=== PATIENT | male | born 1995 | race Caucasian/White ===

== ENCOUNTER 2021-12-19 06:50 | Emergency (ER) | payer OTHER, SELFPAY ==
--- NOTE | 2021-12-19 06:56 | W.ED.EXTPRO ---
HPI - Extremity Problem General: Chief complaint: Extremity Injury, Lower Stated complaint: Right Leg Injury Time Seen by Provider: 12/19/21 06:56 Source: patient Mode of arrival: ambulatory Limitations: no limitations History of Present Illness: 26-year-old male presents emergency room with complaint of right ankle pain. He hyperextended his ankle while working yesterday. He has not previously injured the right ankle. He had caught his foot as he was walking hyper etc. he was able to walk afterward this morning he has quite a bit lateral swelling and discomfort he has some chronic back pain issues and he occasionally uses a cane today using a cane because of his ankle. He landed on an outstretched right hand but has no wrist pain or discomfort no other injuries. MD Complaint: extremity pain Onset (ago): minute(s) Pain Consistency: constant Location: right and lower extremity (Ankle) Quality: aching Radiation: none Relieving factors: elevation Exacerbating factors: weight bearing Associated symptoms: Deny arthralgias, chest pain, fever(s), myalgias, rash or short of breath Review of Systems Const: Denies: fever(s) Card: Denies: chest pain Resp: Denies: dyspnea, productive cough or non-productive cough GI: Denies: abdominal pain, nausea or vomiting Musc: Reports: back pain (Chronic), joint pain and joint swelling; Denies: neck pain Skin/Breast: Denies: rash PFSH ED PFSH: Medical History (Updated 12/19/21 @ 07:43 by Rinku Chino DO) Chronic back pain Surgical History (Updated 12/19/21 @ 07:43 by Rinku Chino DO) No pertinent past surgical history Physical Exam Const: COMMON NORMALS: no acute distress GENERAL APPEARANCE: cooperative and comfortable ORIENTATION/CONSCIOUSNESS: Yes awake, Yes oriented to person, Yes oriented to place and Yes oriented to time HENMT: COMMON NORMALS: normocephalic and atraumatic HEAD & SCALP: normocephalic and atraumatic Neck/C-Spine: COMMON NORMALS: no JVD Resp: COMMON NORMALS: normal respiratory effort, No retractions, No use of accessory muscles and clear to auscultation bilaterally AUSCULTATION: clear to auscultation bilaterally Cardio: COMMON NORMALS: no JVD, regular rate, regular rhythm and No murmurs present (Cardio) RATE: regular rate RHYTHM: regular rhythm Extremity: OTHER: Swelling over the lateral malleolus mildly tender no ecchymosis at this time neurovascular tach plantar and dorsiflexion strength 5 of 5 sensation normal Neuro: SENSORIUM/ORIENTATION: Yes oriented to person, Yes oriented to place and Yes oriented to time Skin: COMMON NORMALS: no rashes or lesions noted GENERAL SKIN EXAM: no rashes or lesions noted Course Vital Signs: Vital signs: Vital Signs Temperature 97.1 F L 12/19/21 06:59 Pulse Rate 106 H 12/19/21 06:59 Respiratory Rate 16 12/19/21 06:59 Blood Pressure 130/95 12/19/21 07:00 Pulse Oximetry 97 12/19/21 07:00 MDM - Extremity (Nontraumatic) Medical Decision Making No acute fracture on x-ray. Elevate ice compress as needed. Follow-up with primary care if not improving. Lab Data I reviewed the patient's lab results. Radiology Impressions Ankle X-Ray 12/19/21 07:00 IMPRESSION: Large amount of soft tissue edema over the lateral malleolus but no fracture. Discharge Plan Discharge Patient Disposition: Home Clinical Impression: Ankle sprain and strain Condition: Stable Prescriptions: New diclofenac sodium 75 mg tablet,delayed release (DR/EC) 75 mg PO Q12H PRN (Reason: pain) Qty: 20 0RF Discharge Orders: Discharge ED (Routine); Ordered 12/19/21 Ordered By: Rinku Chino Discharge Diet: As Directed Discharge Activity: Increase activity as tolerated Patient Instructions: Ankle Sprain (ED), Opioid Safety Activity Restrictions/Additional Instructions: Weightbearing as tolerated increase activity as tolerated. Coding Level of Care Code ED [employer] for Leda Aldana
[2021-12-19 06:59] VITALS: BP 130/95; PULSE 106; RESP 16; TEMP 36.2; O2SAT 96; BMI 32.6
[2021-12-19 07:00] VITALS: BP 130/95; O2SAT 97
--- NOTE | 2021-12-19 07:00 | XR_ITS ---
WS: [id number] RIGHT ANKLE: 3 VIEW(S) TECHNIQUE: AP, oblique(s) and lateral. HISTORY: ankle pain COMPARISON: None available. Normal anatomic alignment with no fracture or dislocation. No joint effusion or widening of the ankle mortise. No significant degenerative changes at the joint spaces. Large amount of soft tissue edema over the lateral ankle. XR/XR ankle RT min 3V* [id number] IMPRESSION: Large amount of soft tissue edema over the lateral malleolus but no fracture.
[2021-12-19 07:42] VITALS: BP 124/86; PULSE 101; O2SAT 99
== END 2021-12-19 07:45 | disposition home or self-care (01) ==
PROVIDERS: Emergency Provider Family Medicine
DX: S96.911A Strain of unspecified muscle and tendon at ankle and foot level, right foot, initial encounter (principal); S93.401A Sprain of unspecified ligament of right ankle, initial encounter; X50.9XXA Other and unspecified overexertion or strenuous movements or postures, initial encounter
CPT/HCPCS: 73610; 99283